=== PATIENT | male | born 1935 | race Caucasian/White ===

== ENCOUNTER → 2024-05-28 | Outpatient (REF) | payer MEDICARE, BC ==
[~2024-05-28] MED LIST: IOPAMIDOL 370 MG/ML 100 ML INFUS..BTL INJ ONE; SODIUM CHLORIDE 0.9% 100 ML ONE
[2024-05-28 10:58] LABS: CREATININE, SERUM 0.97 mg/dL (0.72-1.25)
== END ==
LOC: CT 09:51
PROVIDERS: ATTEND Internal Medicine Cardiovascular Disease
DX: I65.23 Occlusion and stenosis of bilateral carotid arteries (principal)
CPT/HCPCS: 36415; 70498; 82565; 84520; J7050; Q9967